=== PATIENT | male | born 1940 | race Caucasian/White ===

== ENCOUNTER 2020-09-07 14:57 | Inpatient (IN) | payer MEDICARE, OTHER ==
[2020-09-07] VITALS (202 sets, daily range): BP systolic 93–106; BP diastolic 40–79; PULSE 30–63; TEMP 97.3–97.5; O2SAT 69–100
[~2020-09-07] VITALS: Ht 175.3 cm; Wt 112.6 kg
[2020-09-07 15:48] LABS: BASO # 0.1 (0.0-0.2); BASO % 0.6 % (0.0-2.0); EOS # 0.4 (0.0-0.7); EOS % 4.7 % (0-4.0); GRAN % 73.1 % (42.2-75.2); LYMPH % 11.8 % (20.0-51.0); MEAN CELL VOLUME 98 fl (80.0-100.0); MEAN CORPUSCULAR HGB CONC 30 g/dl (33.0-37.0); MEAN PLATELET VOLUME 10.5 fl (7.4-10.4); MONO # 0.8 (0.1-0.6); MONO % 9.4 % (1.7-9.3); PLATELET COUNT 178 K/mm3 (130-400); RED BLOOD COUNT 2.18 M/mm3 (4.20-5.60); REDCELL DISTRIBUTION WIDTH-CV 19.4 % (11.5-14.5)
[2020-09-07 15:50] LABS: HEMATOCRIT 21.3 % (42.0-52.0); HEMOGLOBIN 6.3 g/dl (13.5-18.0); MEAN CORPUSCULAR HEMOGLOBIN 29 pg (27.0-31.0)
[2020-09-07 15:54] LABS: INR 1.6 (0.8-3.0); PROTHROMBIN TIME 17.5 SECONDS (9.7-12.8)
[2020-09-07 15:58] LABS: ALBUMIN 3.6 gm/dL (3.5-5.0); BILIRUBIN,TOTAL 0.5 mg/dL (0.0-1.0); CALCIUM 8.7 mg/dL (8.4-10.2); CREATININE, serum 4.31 (0.66-1.25); MAGNESIUM 2.7 mg/dL (1.6-2.3); PHOSPHOROUS 7.1 mg/dL (2.5-4.5); TOTAL PROTEIN 6.6 gm/dL (6.4-8.2)
[2020-09-07 16:10] LABS: POTASSIUM 6.1 mmol/L (3.4-5.0)
[2020-09-07] MEDS ORDERED: TYLENOL 500MG500 MG PO (16:31)
[2020-09-07] MEDS ORDERED: ZYLOPRIM 300MG300 MG PO (16:45)
[2020-09-07] MEDS ORDERED: LIPITOR 10MG10 MG PO (16:47)
[2020-09-07] MEDS ORDERED: CORICCLDFLU PO (16:48)
[2020-09-07] MEDS ORDERED: BANOPHEN25 M1 PO (16:49)
[2020-09-07] MEDS ORDERED: DULCOLAX STOOL100 MG PO (16:49)
[2020-09-07] MEDS ORDERED: LASIX 40MG TABL40 MG PO (16:50)
[2020-09-07] MEDS ORDERED: NEURONTIN100 MG/CAP PO (16:50)
[2020-09-07] MEDS ORDERED: ANUSOL-HC SUPPO25 MG RC ×2 (16:51→16:55)
[2020-09-07] MEDS ORDERED: GLUCOTROL10 MG PO (16:51)
[2020-09-07] MEDS ORDERED: CARAFATE 1GM1 G PO (16:56)
[2020-09-07] MEDS ORDERED: ZAROXOLYN 2.52.5 MG PO (16:56)
[2020-09-07] MEDS ORDERED: FERROUSGLUC256MG (16:56)
[2020-09-07 17:30] LABS: IRON,SERUM 59 ug/dL (35-150)
[2020-09-07 17:40] LABS: TOTAL IRON BINDING CAPACITY 298 ug/dL (261-462)
--- NOTE | 2020-09-07 19:13 | NUR ---
PT to ICU at 1530 from [facility]. PT is pleasant, alert and oriented. PT HR is in the 40s, BP 105/46 and 100% SPO2 on RA. PT complains of leg pain while on EMS cot, but states it is better on ICU bed. Pt is currently resting in bed with deon Sheldon at bedside. Pt has call light in hand. Will report to oncoming RN.
[2020-09-07 19:38] LABS: BASO % 0.4 % (0.0-2.0); EOS # 0.2 (0.0-0.7); GRAN # 6.3 (1.4-6.5); GRAN % 77.8 % (42.2-75.2); LYMPH # 0.9 (1.2-3.4); LYMPH % 11.3 % (20.0-51.0); MEAN CELL VOLUME 96 fl (80.0-100.0); MEAN CORPUSCULAR HGB CONC 31 g/dl (33.0-37.0); MEAN PLATELET VOLUME 10.8 fl (7.4-10.4); MONO # 0.7 (0.1-0.6); MONO % 8.1 % (1.7-9.3); PLATELET COUNT 177 K/mm3 (130-400); RED BLOOD COUNT 2.13 M/mm3 (4.20-5.60); REDCELL DISTRIBUTION WIDTH-CV 19.5 % (11.5-14.5)
[2020-09-07 19:42] LABS: HEMATOCRIT 20.4 % (42.0-52.0); MEAN CORPUSCULAR HEMOGLOBIN 30 pg (27.0-31.0)
[2020-09-07 19:43] LABS: HEMOGLOBIN 6.3 g/dl (13.5-18.0)
[2020-09-08] VITALS (337 sets, daily range): BP systolic 100–135; BP diastolic 39–73; PULSE 30–56; TEMP 97.1–98.1; O2SAT 82–100
[2020-09-08 05:41] LABS: BASO # 0.1 (0.0-0.2); BASO % 0.7 % (0.0-2.0); EOS # 0.3 (0.0-0.7); GRAN # 6.2 (1.4-6.5); GRAN % 76.4 % (42.2-75.2); LYMPH # 0.8 (1.2-3.4); LYMPH % 9.4 % (20.0-51.0); MEAN CELL VOLUME 92 fl (80.0-100.0); MEAN CORPUSCULAR HGB CONC 31 g/dl (33.0-37.0); MEAN PLATELET VOLUME 10.7 fl (7.4-10.4); MONO # 0.7 (0.1-0.6); MONO % 9.1 % (1.7-9.3); PLATELET COUNT 164 K/mm3 (130-400); RED BLOOD COUNT 2.66 M/mm3 (4.20-5.60); REDCELL DISTRIBUTION WIDTH-CV 18.7 % (11.5-14.5)
[2020-09-08 05:43] LABS: HEMATOCRIT 24.5 % (42.0-52.0); HEMOGLOBIN 7.6 g/dl (13.5-18.0); MEAN CORPUSCULAR HEMOGLOBIN 29 pg (27.0-31.0)
[2020-09-08 05:57] LABS: ALBUMIN 3.6 gm/dL (3.5-5.0); CALCIUM 8.6 mg/dL (8.4-10.2)
[2020-09-08 06:01] LABS: POTASSIUM 6.7 mmol/L (3.4-5.0)
--- NOTE | 2020-09-08 06:35 | NUR ---
DR ZARATE CALLED FOR CONSULT TO [facility] FOR DR BETH, SR HUFFMAN STATED HE WOULD BE IN THIS AM
--- NOTE | 2020-09-08 09:28 | NUR ---
YUDITH met with the patient to discuss discharge plan. The patient lives alone in [place]. He states that his niece's daughter, Rashida (ph#[phone]), checks in on him everyday. He reports independence with ADLs and has a cane and walker. He states that he still drives. The patient receives primary care at [facility] in . He states that his provider there was Jessenia Nunez, but that she has left. He is unsure who is provider will be there now. He states his next appointment at [facility] is on 09/12. He receives his medications from [facility] and [facility]. He reports no difficulties obtaining his meds. The patient does not have a DPOA-HC, but he was interested in obtaining a form. YUDITH provided. The patient states that he is not , has no children, and that his parents are . He states that he has two brothers: Misael ([place]) and Jonnie. He does not know where Jonnie lives and has not been in contact with him. The patient reports that he would want Rashida to be his next of kin. YUDITH encouraged the patient to complete the DPOA-HC then. The patient would like to wait until Rashida gets here to fill out the form. The patient would like to return home upon discharge. YUDITH discussed home health services and it's benefits. The patient would like to see how things go, before deciding on home health or not. PT/OT have been ordered. Awaiting screens. YUDITH then contacted the patient's family member, Rashida, to review the above. Rashida confirms she checks in on the patient everyday. She reports that she will be up to the hospital around 1500 today. She had no other questions for YUDITH at this time. YUDITH to continue to follow. *Discharge plan: At this time, home. Awaiting PT/OT recs*
--- NOTE | 2020-09-08 12:42 | NUR ---
1145-Report called to Ani CARDENAS. Notified of bradycardia. All questions answered. 1200-Laura BARNARD RN asked pt to come straight there from unit. 1203-Ani CARDENAS notified of above. Chyna CARDENAS transported pt on tele box to .
[2020-09-08] MEDS ORDERED: PERCOCET 325 MG1 TAB PO (14:39)
--- NOTE | 2020-09-08 17:30 | NUR ---
PT REPORTING DIARRHEA, IMODIUM ORDER PLACED AND IMODIUM GIVEN. PT REPORTS PAIN WITH MOVEMENT BUT NONE AT REST, GOOD OUTPUT WITH SINGH, LITTLE APPETITE, PT HAD ZOFRAN FOR NAUSEA X1 NO VOMITING OCCURED. PT RESTING IN BED AT THIS TIME WITH CALL LIGHT WITHIN REACH, NO OTHER NEEDS.
--- NOTE | 2020-09-08 22:01 | NUR ---
NOTIFIED RONALD RAVI REGARDING 7 BEATS OF VTACH.
[2020-09-08 23:14] LABS: HEPATITIS B SURFACE ANTIBODY <2.0 (()); HEPATITIS B SURFACE ANTIGEN Negative (Negative); HEPATITIS C VIRUS ANTIBODY Negative (Negative)
--- NOTE | 2020-09-08 23:43 | NUR ---
Patient assessed around 1999. Alert and oriented, and able to make needs known. Denies having pain and discomfort. Peripheral INTs to bilateral forearms flushed, and both sites are without redness, warmth, swelling, and pain. Denies having SOB and dyspnea. LS CTA. Respirations even and unlabored. HR-irregular, ana rosa, murmor present. Telemetry in place. Around 2199, telemetry called and stated that patient had a run of Vtach. BP 130/61, HR 40-80, asymptomatic. Call placed to Dr. Herr, and new order for cardiology consult to be called in the morning. Capillary refill less than 3 seconds. Non-tenting skin turgor. BSAx4. Abdomen soft and non-tender. Assisted to bed villela, and patient had BM. Indwelling mathias catheter patent, and drianing clear yellow urine via dependent drainage. Patient has generalized edema all over. 4+ edema BLE, with redness. Voices no questions, needs, or concerns at this time. Resting in bed with call light within reach. High fall risk precautions in place.
[2020-09-09] VITALS (13 sets, daily range): BP systolic 91–163; BP diastolic 33–71; PULSE 40–71; TEMP 98.1–99
--- NOTE | 2020-09-09 05:34 | NUR ---
Patient has denied having pain and discomfort this shift. HR continues to be in the 30s-50s, irregular. Voices no questions, needs, or concerns at this time. Resting in bed with call light within reach.
[2020-09-09 07:03] LABS: BASO % 0.2 % (0.0-2.0); EOS # 0.2 (0.0-0.7); GRAN # 6.1 (1.4-6.5); GRAN % 75.8 % (42.2-75.2); LYMPH # 0.7 (1.2-3.4); LYMPH % 8.3 % (20.0-51.0); MEAN CELL VOLUME 94 fl (80.0-100.0); MEAN CORPUSCULAR HGB CONC 31 g/dl (33.0-37.0); MEAN PLATELET VOLUME 11.4 fl (7.4-10.4); MONO % 12.2 % (1.7-9.3); PLATELET COUNT 148 K/mm3 (130-400); RED BLOOD COUNT 2.62 M/mm3 (4.20-5.60); REDCELL DISTRIBUTION WIDTH-CV 19.7 % (11.5-14.5)
[2020-09-09 07:04] LABS: ALBUMIN 3.4 gm/dL (3.5-5.0); CALCIUM 8.3 mg/dL (8.4-10.2); CREATININE, serum 3.07 (0.66-1.25); PHOSPHOROUS 5.6 mg/dL (2.5-4.5); POTASSIUM 4.5 mmol/L (3.4-5.0)
[2020-09-09 07:05] LABS: HEMATOCRIT 24.6 % (42.0-52.0); HEMOGLOBIN 7.7 g/dl (13.5-18.0); MEAN CORPUSCULAR HEMOGLOBIN 29 pg (27.0-31.0)
--- NOTE | 2020-09-09 08:30 | NUR ---
Shift assessment complete. A&Ox4. Heart rhythm irregular, rate 30s-40s. Denies SOA/dizziness/chest pain. 4+ edema and redness to BLE, reports tenderness to touch bilaterally. Lungs CTA. Denies needs.
--- NOTE | 2020-09-09 08:35 | NUR ---
Pt transported down to dialysis at this time.
--- NOTE | 2020-09-09 11:42 | NUR ---
Patient tolerated 2nd HD tx with 2.5L fluid removal. HR remained in the mid 50's. Next HD tx on standby pending tomorrow's labs.
--- NOTE | 2020-09-09 12:00 | NUR ---
Pt taken down for EGD at this time.
--- NOTE | 2020-09-09 13:41 | NUR ---
Pt back in room following EGD. Post op vitals started.
--- NOTE | 2020-09-09 16:47 | NUR ---
Braider Tender met with patient as he wanted to complete DPOA-HC paperwork. Patient chose to designate his niece, Nadia and great-niece, Monalisa. YUDITH and YUDITH Claros provided witness signature. YUDITH provided original and copies to patient then placed copy on patient's chart. YUDITH also spoke with patient about Home Health services and provided Medicare.gov list of HH agencies. Patient would like time to review the options. Discharge Plan: Home with Home Health
--- NOTE | 2020-09-09 20:30 | NUR ---
Initial shift assessment done- has been resting quietly-hoping to get some sleep,,no requests at this time, Lechuga with clear yellow urine , refusing SCD,s due to lymphedema and cant have anything touching his legs-painful to touch and move legs, on clear liquid diet. Right IJ dialysis cathter to right jugular,, tele on-afib,bradycardic 40,s
[2020-09-10 00:17] VITALS: BP 123/42; PULSE 50; TEMP 97.5
[2020-09-10 04:27] VITALS: BP 133/52; PULSE 65; TEMP 98.6
--- NOTE | 2020-09-10 05:40 | NUR ---
Quiet night-- slept well, no requests, no stools during the night. Tele was Afib, rate 40-60/min, Lechuga with good output. states he is feeling so much better.
[2020-09-10 06:35] LABS: BASO % 0.4 % (0.0-2.0); EOS # 0.3 (0.0-0.7); EOS % 3.9 % (0-4.0); GRAN # 6.2 (1.4-6.5); GRAN % 74.6 % (42.2-75.2); LYMPH # 0.7 (1.2-3.4); LYMPH % 8.7 % (20.0-51.0); MEAN CELL VOLUME 94 fl (80.0-100.0); MEAN CORPUSCULAR HGB CONC 31 g/dl (33.0-37.0); MEAN PLATELET VOLUME 11.7 fl (7.4-10.4); MONO % 11.7 % (1.7-9.3); PLATELET COUNT 149 K/mm3 (130-400); RED BLOOD COUNT 2.67 M/mm3 (4.20-5.60); REDCELL DISTRIBUTION WIDTH-CV 18.9 % (11.5-14.5)
[2020-09-10 06:39] LABS: HEMOGLOBIN 7.7 g/dl (13.5-18.0); MEAN CORPUSCULAR HEMOGLOBIN 29 pg (27.0-31.0)
[2020-09-10 06:44] LABS: ALBUMIN 3.4 gm/dL (3.5-5.0); CALCIUM 8.4 mg/dL (8.4-10.2); CREATININE, serum 2.18 (0.66-1.25); PHOSPHOROUS 3.7 mg/dL (2.5-4.5); POTASSIUM 3.5 mmol/L (3.4-5.0)
[2020-09-10 07:45] VITALS: BP 148/50; PULSE 68
--- NOTE | 2020-09-10 08:30 | NUR ---
Shift assessment complete. Pt lying in bed, emotional this morning. Began tearing up stating how thankful he was for the great care at such a difficult time for him. Offered pt to speak w/bread wrapper operator during stay, he declined. A&Ox4. Heart rhythm remains irregular w/rate between 30-50s. Denies chest pain/dizziness/SOA. Heart RRR. BLE remain swollen w/4+ edema and tender to touch, RLE reddened over weeks and foot. Denies needs. Call light in reach.
[2020-09-10 12:50] VITALS: BP 128/54; PULSE 43; TEMP 98.5
[2020-09-10 17:11] VITALS: BP 114/89; PULSE 50; TEMP 98.5
--- NOTE | 2020-09-10 20:00 | NUR ---
Initial shift assessment done- states feeling better,, Tele on, Afib,rate 40-60,s,,,Dialysis cathter intact to right jugular- dressing dry and intact, Has INT to left external jugular- intact. Pt just resting, no complaints at this time. Lechuga with good amounts clear yellow urine.
--- NOTE | 2020-09-10 20:35 | NUR ---
Tele nurse called states patient had 6 sec run of PVC,s-- requested a EKG-- respiratory called--will come up to do 12 lead EKG. patient resting- states feels fine VSS, 145/48,65, 94%on RA-
[2020-09-10 20:55] VITALS: BP 145/48; PULSE 65; TEMP 98.9
--- NOTE | 2020-09-10 21:00 | NUR ---
EKG done-- Dr Herr notified of 6 sec run of PVCS and EKG with afib/pvc,s--rate controlled at 68/min, pt is asymptomatic, VSS - will continue to observe on Tele tonight as long as pt is asymptomatic- no new orders.
[2020-09-11 01:33] VITALS: BP 157/53; PULSE 49; TEMP 98.4
[2020-09-11 04:22] VITALS: BP 148/46; PULSE 45; TEMP 98
--- NOTE | 2020-09-11 05:15 | NUR ---
Quiet night-- couldnt get comfortable- right leg sore, Tylenol given around 0200-- has been resting quietly since , VS, Has had 1650 output from [employer] for past 12 hrs.
[2020-09-11 07:18] VITALS: BP 144/69; PULSE 59; TEMP 98.7
[2020-09-11 07:39] LABS: BASO % 0.3 % (0.0-2.0); EOS # 0.5 (0.0-0.7); EOS % 5.2 % (0-4.0); GRAN # 6.4 (1.4-6.5); GRAN % 71.5 % (42.2-75.2); LYMPH # 0.9 (1.2-3.4); LYMPH % 10.6 % (20.0-51.0); MEAN CELL VOLUME 94 fl (80.0-100.0); MEAN CORPUSCULAR HGB CONC 31 g/dl (33.0-37.0); MEAN PLATELET VOLUME 11.7 fl (7.4-10.4); MONO # 1.1 (0.1-0.6); MONO % 11.8 % (1.7-9.3); PLATELET COUNT 151 K/mm3 (130-400); RED BLOOD COUNT 2.72 M/mm3 (4.20-5.60); REDCELL DISTRIBUTION WIDTH-CV 18.5 % (11.5-14.5)
[2020-09-11 07:44] LABS: HEMATOCRIT 25.5 % (42.0-52.0); MEAN CORPUSCULAR HEMOGLOBIN 29 pg (27.0-31.0)
[2020-09-11 07:56] LABS: ALBUMIN 3.3 gm/dL (3.5-5.0); CALCIUM 8.3 mg/dL (8.4-10.2); CREATININE, serum 2.25 (0.66-1.25); PHOSPHOROUS 3.4 mg/dL (2.5-4.5)
[2020-09-11 07:59] LABS: POTASSIUM 2.9 mmol/L (3.4-5.0)
--- NOTE | 2020-09-11 09:24 | NUR ---
Assessment completed, alert/oriented, vital signs stable, denies any acute pain or discomfort/ has chronic mild-mod pain to his legs that is unchanged and we are using Tylenol to treat, heart irregular/ A.fib bradycardic on tele, denies feeling dizzy/lightheaded, lungs CTA/ denies feeling SOA, reports overall feeling better, creat 2.2 and about the same as yesterday, K+ 2.9 and I will let know, having good urine output / mathias cath still in place, patient is up to the chair and walked with PT he did quite well on his feet, he is eating and drinking without any N/V, denies other needs at this time, call light in reach, chair alarm is on
[2020-09-11 12:18] VITALS: BP 154/40; PULSE 64; TEMP 98.4
[2020-09-11 16:26] VITALS: BP 168/72; PULSE 55; TEMP 97.9
[2020-09-11 20:20] VITALS: BP 154/62; PULSE 56; TEMP 98.1
[2020-09-12 00:18] VITALS: BP 148/45; PULSE 72; TEMP 98.3
[2020-09-12 04:56] VITALS: BP 150/56; PULSE 56; TEMP 97.7
[2020-09-12 05:13] LABS: BASO % 0.2 % (0.0-2.0); EOS # 0.6 (0.0-0.7); EOS % 6.8 % (0-4.0); GRAN # 6.3 (1.4-6.5); GRAN % 69.2 % (42.2-75.2); LYMPH % 11.4 % (20.0-51.0); MEAN CELL VOLUME 92 fl (80.0-100.0); MEAN CORPUSCULAR HGB CONC 31 g/dl (33.0-37.0); MONO # 1.1 (0.1-0.6); PLATELET COUNT 166 K/mm3 (130-400); RED BLOOD COUNT 2.79 M/mm3 (4.20-5.60); REDCELL DISTRIBUTION WIDTH-CV 18.1 % (11.5-14.5)
[2020-09-12 05:22] LABS: HEMATOCRIT 25.6 % (42.0-52.0); MEAN CORPUSCULAR HEMOGLOBIN 29 pg (27.0-31.0)
[2020-09-12 05:25] LABS: ALBUMIN 3.2 gm/dL (3.5-5.0); CALCIUM 8.3 mg/dL (8.4-10.2); CREATININE, serum 2.02 (0.66-1.25); PHOSPHOROUS 2.8 mg/dL (2.5-4.5)
[2020-09-12 05:27] LABS: POTASSIUM 2.9 mmol/L (3.4-5.0)
--- NOTE | 2020-09-12 07:00 | NUR ---
Report received from aviva junior. PT resting in bed, denies needs, will continue to monitor.
[2020-09-12 07:39] VITALS: BP 158/65; PULSE 69; TEMP 98.3
--- NOTE | 2020-09-12 10:40 | NUR ---
Report from RONALD Prieto. Pt sitting up in chair with eyes closed, resp even and unlabored.
[2020-09-12] MEDS ORDERED: PROTONIX 40MG T40 MG PO (10:55)
[2020-09-12] MEDS ORDERED: BUMEX 1MG TA1 MG/TA1 PO (11:00)
--- NOTE | 2020-09-12 11:05 | NUR ---
Assessment charted. pT resting in chair at side of bed, anticipating possible dishcarge. RIJ HD cath. LEJ INT. BLE lymphedema 3+ and 2+ to feet, RLE is more red than others. PT denies pain. Report given to RONALD Alvarado who will resume care.
[2020-09-12 11:24] VITALS: BP 142/68; PULSE 60; TEMP 98.3
--- NOTE | 2020-09-12 12:06 | NUR ---
HD catheter removed from right IJ by Airborne Sensor Specialist, RONALD Kaur.
[2020-09-12] MEDS ORDERED: KLOR-CON SPRIN10 MEQ PO ×2 (12:23)
--- NOTE | 2020-09-12 14:08 | NUR ---
Lechuga catheter and telemetry discontinued from pt. Pt cleaning up per request then will be ready for discharge.
--- NOTE | 2020-09-12 14:40 | NUR ---
IV discontinued from left EJ with tip intact. Discharge instructions reviewed with pt regarding new medications and follow-up appointments and home health orders. Pt verbalizes understanding, questions invited and answered. Pt discharged home with home health services, escorted out of facility via WC accompanied by LATENT PRINT EXAMINER and pt's friend.
--- NOTE | 2020-09-12 16:45 | NUR ---
The patient discharged home today, 09/12 with [facility]. PT/OT/Penitentiary services. SW faxed discharge orders. There are no additional needs.
[2020-10-18] MEDS ORDERED: LASIX 40MG TABL40 MG PO (11:44)
== END 2020-09-12 15:00 | disposition home health service (06) | DRG 378 ==
LOC: MEDICAL 14:57 → ICU 15:20 → MEDICAL 09-08 13:46
PROVIDERS: ADMIT Internal Medicine Nephrology
PROC: 0DB68ZX Excision of Stomach, Via Natural or Artificial Opening Endoscopic, Diagnostic (ICD-10-PCS; 2020-09-07)
PROC: 0JH63XZ Insertion of Tunneled Vascular Access Device into Chest Subcutaneous Tissue and Fascia, Percutaneous Approach (ICD-10-PCS; principal; 2020-09-08)
PROC: 05HM33Z Insertion of Infusion Device into Right Internal Jugular Vein, Percutaneous Approach (ICD-10-PCS; 2020-09-08)
DX: K29.41 Chronic atrophic gastritis with bleeding (principal); R57.9 Shock, unspecified; N17.9 Acute kidney failure, unspecified; Z68.41 Body mass index [BMI] 40.0-44.9, adult; E11.22 Type 2 diabetes mellitus with diabetic chronic kidney disease; N18.32 Chronic kidney disease, stage 3b; E66.01 Morbid (severe) obesity due to excess calories; E87.6 Hypokalemia; R00.1 Bradycardia, unspecified; E87.5 Hyperkalemia; N40.0 Benign prostatic hyperplasia without lower urinary tract symptoms; M10.9 Gout, unspecified; M19.90 Unspecified osteoarthritis, unspecified site; I12.9 Hypertensive chronic kidney disease with stage 1 through stage 4 chronic kidney disease, or unspecified chronic kidney disease; D50.9 Iron deficiency anemia, unspecified; K21.9 Gastro-esophageal reflux disease without esophagitis; K31.89 Other diseases of stomach and duodenum; K44.9 Diaphragmatic hernia without obstruction or gangrene
CPT/HCPCS: A4314; C9113; J0610; J1644; J1756; J1815; J1940; J2405; J2704; J7030; J7050; P9016; Q5106

== ENCOUNTER 2020-09-20 17:32 | Observation (INO) | payer MEDICARE, OTHER ==
[~2020-09-20] VITALS: Ht 175.3 cm; Wt 121.4 kg
[~2020-09-20 17:32] MED LIST: ANUSOL-HC SUPPO25 MG RC; BANOPHEN25 M1 PO; BUMEX 1MG TA1 MG/TA1 PO; CARAFATE 1GM1 G PO; CORICCLDFLU PO; DULCOLAX STOOL100 MG PO; FERROUSGLUC256MG; GLUCOTROL10 MG PO; KLOR-CON SPRIN10 MEQ PO; LASIX 40MG TABL40 MG PO; LIPITOR 10MG10 MG PO; NEURONTIN100 MG/CAP PO; PERCOCET 325 MG1 TAB PO; PROTONIX 40MG T40 MG PO; TYLENOL 500MG500 MG PO; ZAROXOLYN 2.52.5 MG PO; ZYLOPRIM 300MG300 MG PO
[2020-09-20 18:35] LABS: BASO # 0.1 (0.0-0.2); EOS # 0.5 (0.0-0.7); EOS % 4.1 % (0-4.0); GRAN # 8.5 (1.4-6.5); GRAN % 72.5 % (42.2-75.2); LYMPH # 1.4 (1.2-3.4); LYMPH % 11.6 % (20.0-51.0); MEAN CELL VOLUME 93 fl (80.0-100.0); MEAN CORPUSCULAR HGB CONC 31 g/dl (33.0-37.0); MEAN PLATELET VOLUME 10.6 fl (7.4-10.4); MONO # 1.2 (0.1-0.6); PLATELET COUNT 273 K/mm3 (130-400); RED BLOOD COUNT 3.31 M/mm3 (4.20-5.60); REDCELL DISTRIBUTION WIDTH-CV 17.1 % (11.5-14.5)
[2020-09-20 18:36] LABS: HEMATOCRIT 30.7 % (42.0-52.0); HEMOGLOBIN 9.4 g/dl (13.5-18.0); MEAN CORPUSCULAR HEMOGLOBIN 28 pg (27.0-31.0)
[2020-09-20 18:45] LABS: BILIRUBIN,TOTAL 0.4 mg/dL (0.0-1.0); CALCIUM 7.7 mg/dL (8.4-10.2); CREATININE, serum 3.93 (0.66-1.25); POTASSIUM 5.2 mmol/L (3.4-5.0); TOTAL PROTEIN 7.1 gm/dL (6.4-8.2)
[2020-09-20 19:00] LABS: COLLECTION METHOD CLEAN CATCH
[2020-09-20 19:17] LABS: MUCOUS Present /lpf; PH 5 (5-8); SQUAMOUS EPITHELIAL None Seen /hpf; URINE APPEARANCE Clear; URINE BACTERIA None Seen /hpf; URINE BILIRUBIN Negative (NEGATIVE); URINE BLOOD Negative (NEGATIVE); URINE COLOR Yellow; URINE GLUCOSE Negative (NEGATIVE); URINE KETONE Negative (NEGATIVE); URINE LEUKOCYTE ESTERASE 1+ (NEGATIVE); URINE NITRATE Negative (NEGATIVE); URINE PROTEIN(semi-quant) Negative (NEGATIVE); URINE RBC 0-2 /hpf; URINE UROBILINOGEN Negative (NEGATIVE)
--- NOTE | 2020-09-20 21:20 | NUR ---
Received patient from ED. He is alert and oriented. He is on room air. With INT on right AC. Medrec has been reviewed. BLE has +3 edema. Lymphedema noted right leg worse than left. He states he feels pain whenever he would walk, but denies pain right now as he was lying in bed.
[2020-09-20 21:21] VITALS: BP 130/63; PULSE 79; TEMP 97.5
[2020-09-20 21:23] LABS: INR 1.6 (0.8-3.0); PROTHROMBIN TIME 17.4 SECONDS (9.7-12.8)
--- NOTE | 2020-09-20 22:05 | NUR ---
Called Dr. Herr that patient's already at room and medrec is done. Informed patient regarding his diet and fluid restriction. He verbalizes understanding.
[2020-09-20 23:43] VITALS: BP 110/44; PULSE 109; TEMP 98.6
[2020-09-21 04:07] VITALS: BP 108/44; PULSE 51; TEMP 97.4
--- NOTE | 2020-09-21 06:23 | NUR ---
Patient had uneventful night. He do have adequate amount of urine output. Maintained on fluid restriction.
--- NOTE | 2020-09-21 07:00 | NUR ---
Report received from RONALD Zarco. pT in bed resting with eyes close,d will continue to [facility].
[2020-09-21 07:06] LABS: BASO # 0.1 (0.0-0.2); BASO % 0.8 % (0.0-2.0); EOS # 0.6 (0.0-0.7); EOS % 5.9 % (0-4.0); GRAN # 6.9 (1.4-6.5); GRAN % 69.1 % (42.2-75.2); LYMPH # 1.5 (1.2-3.4); LYMPH % 14.7 % (20.0-51.0); MEAN CELL VOLUME 94 fl (80.0-100.0); MEAN CORPUSCULAR HGB CONC 31 g/dl (33.0-37.0); MEAN PLATELET VOLUME 11.2 fl (7.4-10.4); MONO # 0.9 (0.1-0.6); MONO % 8.8 % (1.7-9.3); PLATELET COUNT 255 K/mm3 (130-400); RED BLOOD COUNT 3.12 M/mm3 (4.20-5.60); REDCELL DISTRIBUTION WIDTH-CV 17.2 % (11.5-14.5)
[2020-09-21 07:12] LABS: ALBUMIN 3.5 gm/dL (3.5-5.0); CALCIUM 7.7 mg/dL (8.4-10.2); CREATININE, serum 3.56 (0.66-1.25); PHOSPHOROUS 6.9 mg/dL (2.5-4.5); POTASSIUM 4.6 mmol/L (3.4-5.0)
[2020-09-21 07:13] LABS: HEMATOCRIT 29.3 % (42.0-52.0); MEAN CORPUSCULAR HEMOGLOBIN 29 pg (27.0-31.0)
[2020-09-21 08:12] VITALS: BP 109/54; PULSE 51; TEMP 97.4
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
[2020-09-21 11:42] VITALS: BP 107/62; PULSE 59; TEMP 98.3
--- NOTE | 2020-09-21 13:32 | NUR ---
Dialysis Technician met with patient to discuss discharge planning. Patient lives alone in [place] and goes to the [facility] in for primary care. Patient obtains medications from [facility] in with no difficulties. Patient has a walker and cane at home. Patient reports he is slow, but independent with ADLS and has [facility]. Patient advised that services from [place] have been going well and wants to continue with them. Patient has Advance Directives in EMR which designate Monalisa Perez and Tata Reyna as DPOA-HC. Patient advised he plans to return home upon discharge with continued [facility]. SW contacted patient's niece/DPOA-HC, Monalisa to review discharge plan. Monalisa is in agreement with plan for home with . YUDITH contacted Praveena at [facility] and left a message, then faxed clinical updates. Discharge Plan: Home with [facility].
[2020-09-21 15:54] VITALS: BP 116/48; PULSE 57; TEMP 97.9
--- NOTE | 2020-09-21 18:24 | NUR ---
Pt blood sugar low on initial check, able to stay awake and asymptomatic, encourage intake of pie, crackres with peanut butter, OJ with sugar. WBG went from 40 to 50. Called for orders, received and input. Will administer per protocol and continue to monitor. Will give bedside report to nightshift nruse who will reusme care.
--- NOTE | 2020-09-21 19:00 | NUR ---
Received report from Ida. Patient awake in bed. Denies needs at this time.
[2020-09-21 19:21] VITALS: BP 122/57; PULSE 97; TEMP 97.4
--- NOTE | 2020-09-21 21:31 | NUR ---
Assesment done. Patient with IV on right AC infusing Bumex drip at 5ml/hr. He has urinal at the bedside. On left arm restrict. SCD on both legs. He denies pain.
[2020-09-22] VITALS (8 sets, daily range): BP systolic 94–135; BP diastolic 45–92; PULSE 56–96; TEMP 97.3–98.5
--- NOTE | 2020-09-22 06:10 | NUR ---
Patient states he feels that his legs are getting softer. He has a good amount of urine output. He denies pain.
[2020-09-22 07:01] LABS: BASO # 0.1 (0.0-0.2); BASO % 0.8 % (0.0-2.0); EOS # 0.5 (0.0-0.7); EOS % 4.2 % (0-4.0); GRAN # 8.3 (1.4-6.5); GRAN % 74.3 % (42.2-75.2); LYMPH # 1.4 (1.2-3.4); LYMPH % 12.3 % (20.0-51.0); MEAN CELL VOLUME 92 fl (80.0-100.0); MEAN CORPUSCULAR HGB CONC 32 g/dl (33.0-37.0); MEAN PLATELET VOLUME 11.1 fl (7.4-10.4); MONO # 0.9 (0.1-0.6); MONO % 7.6 % (1.7-9.3); PLATELET COUNT 278 K/mm3 (130-400); RED BLOOD COUNT 3.15 M/mm3 (4.20-5.60); REDCELL DISTRIBUTION WIDTH-CV 17.2 % (11.5-14.5)
[2020-09-22 07:04] LABS: HEMATOCRIT 28.9 % (42.0-52.0); HEMOGLOBIN 9.1 g/dl (13.5-18.0); MEAN CORPUSCULAR HEMOGLOBIN 29 pg (27.0-31.0)
[2020-09-22 07:17] LABS: ALBUMIN 3.5 gm/dL (3.5-5.0); CALCIUM 8.2 mg/dL (8.4-10.2); CREATININE, serum 3.09 (0.66-1.25); PHOSPHOROUS 6.1 mg/dL (2.5-4.5); POTASSIUM 4.8 mmol/L (3.4-5.0)
--- NOTE | 2020-09-22 07:22 | NUR ---
Patient resting in bed at this time. No signs of pain, discomfort, or futher needs at this time. Bumex drip running as ordered. Will continue to monitor. Call light in reach. Fall precautions in reach.
--- NOTE | 2020-09-22 09:20 | NUR ---
Initial visit; Patient thanked Materials Director for stopping and states he is doing well and hopes to go home soon. Materials Director offered God's blessings and wished Robert well.
--- NOTE | 2020-09-22 15:25 | NUR ---
Behavioral Health Counselor staffed with Dr. Herr regarding discharge. The patient is not ready for discharge this day. *Discharge disposition: Home with home health
--- NOTE | 2020-09-22 18:36 | NUR ---
Patient has had an uneventful day. Bumex drip is still running as ordered. Dialysis catheter not placed per Bedros. Patient is currently resting in bed. VSS. Patient denies any pain, discomfort, or further needs at this time. Will continue to monitor. Call light in reach. Fall precautions in place.
--- NOTE | 2020-09-22 20:00 | NUR ---
Assessment complete. Patient is alert and oriented and pleasant; He complains of right leg pain and PRN Tylenol is adminstered. Heart rate is normal with murmur and lungs are clear. BS audible in all quadrants. BLE edematous with 1+ pitting; RLE is red and warm with old skin graft sites. No new concerns at this time, will continue to monitor.
[2020-09-23 04:09] VITALS: BP 113/60; PULSE 61; TEMP 98.4
[2020-09-23 06:26] LABS: BASO # 0.1 (0.0-0.2); BASO % 0.8 % (0.0-2.0); EOS # 0.4 (0.0-0.7); EOS % 4.4 % (0-4.0); GRAN # 6.6 (1.4-6.5); GRAN % 67.2 % (42.2-75.2); LYMPH # 1.8 (1.2-3.4); LYMPH % 17.9 % (20.0-51.0); MEAN CELL VOLUME 92 fl (80.0-100.0); MEAN CORPUSCULAR HGB CONC 31 g/dl (33.0-37.0); MEAN PLATELET VOLUME 11.1 fl (7.4-10.4); MONO # 0.9 (0.1-0.6); MONO % 9.1 % (1.7-9.3); PLATELET COUNT 295 K/mm3 (130-400); RED BLOOD COUNT 3.27 M/mm3 (4.20-5.60); REDCELL DISTRIBUTION WIDTH-CV 17.2 % (11.5-14.5)
[2020-09-23 06:31] LABS: HEMOGLOBIN 9.2 g/dl (13.5-18.0); MEAN CORPUSCULAR HEMOGLOBIN 28 pg (27.0-31.0)
[2020-09-23 06:40] LABS: ALBUMIN 3.5 gm/dL (3.5-5.0); CALCIUM 8.5 mg/dL (8.4-10.2); CREATININE, serum 3.05 (0.66-1.25); PHOSPHOROUS 5.6 mg/dL (2.5-4.5); POTASSIUM 4.8 mmol/L (3.4-5.0)
--- NOTE | 2020-09-23 06:53 | NUR ---
Patient asleep in bed at this time. No signs of pain, discomfort, or needs. Will conitnue to monitor. Bumex drip running as ordered. Call light in reach. Fall precautions in place. SCDS in use.
[2020-09-23 07:42] VITALS: BP 109/67; PULSE 82; TEMP 97.7
--- NOTE | 2020-09-23 10:51 | NUR ---
Scheduled medications given. Assessments performed. Patient C/O pain in his right late. Rates it an 8/10 aching pain, that increases with movement. PRN percocet given. Patient denies any further pain, discomfort, or needs at this time. Heel protectors on, SCDS in use. Will continue to monitor. Call light in reach. Fall precautions in place.
[2020-09-23 11:17] VITALS: BP 107/53; PULSE 84; TEMP 98.1
[2020-09-23] MEDS ORDERED: PHOSLO667 MG PO (13:20)
[2020-09-23] MEDS ORDERED: GLUCOTROL10 MG PO (13:22)
[2020-09-23] MEDS ORDERED: LASIX 40MG TABL40 MG PO (13:26)
[2020-09-23] MEDS ORDERED: KLOR-CON SPRIN10 MEQ PO (13:27)
--- NOTE | 2020-09-23 15:07 | NUR ---
IV DC'd catheter intact, no sign of phlebitis. Discharge education/instructions given. Patient verbalized an understanding and denied any further questions or concerns. VSS. Patient escorted from building by [facility] staff via wheelchair.
--- NOTE | 2020-09-23 16:54 | NUR ---
The patient discharged home today, 09/23 with [facility]. PT/OT/Nursing. Discharge orders faxed and Praveena from [facility] contacted regarding discharge. There are no additional needs.
[2020-10-18] MEDS ORDERED: LASIX 40MG TABL40 MG PO (11:44)
== END 2020-09-23 15:09 | disposition home or self-care (01) ==
LOC: COL.ER 17:32 → MEDICAL 19:22
PROVIDERS: Physician Assistant; ADMIT Internal Medicine Nephrology
DX: N17.9 Acute kidney failure, unspecified (principal); E87.70 Fluid overload, unspecified; N18.4 Chronic kidney disease, stage 4 (severe); E83.39 Other disorders of phosphorus metabolism; M10.9 Gout, unspecified; I12.9 Hypertensive chronic kidney disease with stage 1 through stage 4 chronic kidney disease, or unspecified chronic kidney disease; N12 Tubulo-interstitial nephritis, not specified as acute or chronic; E11.22 Type 2 diabetes mellitus with diabetic chronic kidney disease; Q60.0 Renal agenesis, unilateral; E78.5 Hyperlipidemia, unspecified; M19.90 Unspecified osteoarthritis, unspecified site; G89.29 Other chronic pain; G47.00 Insomnia, unspecified; E87.5 Hyperkalemia; E11.9 Type 2 diabetes mellitus without complications; F41.9 Anxiety disorder, unspecified; Z79.84 Long term (current) use of oral hypoglycemic drugs; Z79.899 Other long term (current) drug therapy; Z79.891 Long term (current) use of opiate analgesic
CPT/HCPCS: G0378

== ENCOUNTER 2020-09-29 17:44 | Inpatient (IN) | payer MEDICARE, OTHER ==
[~2020-09-29] VITALS: Ht 175.3 cm; Wt 107.0 kg
[~2020-09-29 17:44] MED LIST changes: +PHOSLO667 MG PO
[2020-09-29 19:05] LABS: BASO # 0.1 (0.0-0.2); EOS # 0.2 (0.0-0.7); EOS % 1.9 % (0-4.0); GRAN # 7.5 (1.4-6.5); GRAN % 72.9 % (42.2-75.2); LYMPH # 1.5 (1.2-3.4); LYMPH % 14.4 % (20.0-51.0); MEAN CELL VOLUME 90 fl (80.0-100.0); MEAN CORPUSCULAR HGB CONC 31 g/dl (33.0-37.0); MEAN PLATELET VOLUME 11.2 fl (7.4-10.4); MONO # 0.9 (0.1-0.6); MONO % 9.1 % (1.7-9.3); PLATELET COUNT 304 K/mm3 (130-400); RED BLOOD COUNT 3.46 M/mm3 (4.20-5.60); REDCELL DISTRIBUTION WIDTH-CV 17.5 % (11.5-14.5)
[2020-09-29 19:06] LABS: HEMATOCRIT 31.2 % (42.0-52.0); HEMOGLOBIN 9.7 g/dl (13.5-18.0); MEAN CORPUSCULAR HEMOGLOBIN 28 pg (27.0-31.0)
[2020-09-29 19:16] LABS: ALBUMIN 4.2 gm/dL (3.5-5.0); BILIRUBIN,TOTAL 0.6 mg/dL (0.0-1.0); CALCIUM 8.7 mg/dL (8.4-10.2); CREATININE, serum 6.82 (0.66-1.25); TOTAL PROTEIN 7.5 gm/dL (6.4-8.2)
[2020-09-29 19:28] LABS: POTASSIUM 6.6 mmol/L (3.4-5.0)
[2020-09-29 20:32] LABS: COLLECTION METHOD CLEAN CATCH
[2020-09-29 20:43] LABS: PH 8 (5-8); SQUAMOUS EPITHELIAL None Seen /hpf; URINE APPEARANCE Hazy; URINE BACTERIA None Seen /hpf; URINE BILIRUBIN Negative (NEGATIVE); URINE BLOOD Negative (NEGATIVE); URINE COLOR Yellow; URINE GLUCOSE Negative (NEGATIVE); URINE KETONE Negative (NEGATIVE); URINE LEUKOCYTE ESTERASE 3+ (NEGATIVE); URINE NITRATE Negative (NEGATIVE); URINE PROTEIN(semi-quant) Negative (NEGATIVE); URINE RBC 0-2 /hpf; URINE UROBILINOGEN Negative (NEGATIVE)
[2020-09-29] MEDS ORDERED: GLUCOTROL 5M5 MG/TAB PO (22:01)
[2020-09-29 22:38] VITALS: BP 135/44; PULSE 56
[2020-09-30] VITALS (7 sets, daily range): BP systolic 105–127; BP diastolic 40–75; PULSE 43–73; TEMP 97.3–98.3
--- NOTE | 2020-09-30 02:55 | NUR ---
Pt not able to get much sleep. States he only sleeps a short amount of time and then wakes up. He is emotional at this time due to him getting sick quicker and having to be hospitalized more often. He says that he knows he needs to do dialysis. Gave him some ice water and encouraged him to drink on it slowly. Call light within reach
--- NOTE | 2020-09-30 06:03 | NUR ---
Pt resting at this time
--- NOTE | 2020-09-30 07:54 | NUR ---
Pt assessment complete. Pt is sleeping in bed upon entry, arouses to voice. He is denies SOB at this time. Reports mild pain to R knee this is a chronic thing. BLE elevated on pillows. Has no needs at this time. Call light within reach.
--- NOTE | 2020-09-30 09:04 | NUR ---
Pt sleeping at this time. Had refused breakfast earlier, will reevaluate with patient when awake.
--- NOTE | 2020-09-30 10:48 | NUR ---
Initial visit; Patient recalls prior visits from Pecan Cleaner. He spoke of his continual health issues and thanked Pecan Cleaner for looking in on him and keeping him in her prayers.
[2020-09-30 10:55] LABS: ALBUMIN 3.7 gm/dL (3.5-5.0); CALCIUM 8.5 mg/dL (8.4-10.2); CREATININE, serum 5.93 (0.66-1.25); POTASSIUM 5.1 mmol/L (3.4-5.0)
--- NOTE | 2020-09-30 16:52 | NUR ---
Machine Printer Hose met with patient and patient's niece/DPOA-Davmary ellen to discuss discharge planning. Patient is a readmit and his recent stays were 09/12 and 09/23. Patient was discharged home with [facility]. Before the intake, YUDITH had contacted Praveena at [facility] and faxed clinical updates. Praveena advised they had not been able to do anything more than an initial visit as patient had not followed through with his appointments at [facility] so they could get further orders. Patient did see his PCP, Dr Inman at [facility] yesterday so now [facility] will have further orders and can make more visits. Patient lives alone in [place] and goes to [facility] in for primary care. Patient obtains medications from [facility] and advised he has been taking his medications as prescribed. Patient reports he's been following his diet and not cooking with salt. Patient has a cane and walker that he uses at home. Patient reports at this time he plans to return home with [facility]. PT/OT have been ordered. YUDITH collaborated with Dr. Herr who advised he will be initiating dialysis for patient here and will work on setting him up at his clinic for outpatient. YUDITH will continue to follow. Discharge Plan: Home with [facility]
--- NOTE | 2020-09-30 18:19 | NUR ---
Pt up to the chair this afternoon and for dinner, slept most of the day. Pain to lower extremities with any touch. Elevated on pillows. Eating dinner at this time, POC discussed with patient who verbalizes understanding. Will be NPO at [facility]. No needs at this time.
--- NOTE | 2020-09-30 21:30 | NUR ---
Pt resing in bed upon entering. Pt reports that he had an overall good day. He talked about having the dialysis catheter placed tomorrow. Pt got teary eyed and just said that it is a lot to take in. He knows he needs to go through with it, just doesn't know how he will manage. Educated pt regarding resources and to ask questions any time he has any. PRN Tylenol given for right knee pain
[2020-10-01] VITALS (11 sets, daily range): BP systolic 99–124; BP diastolic 40–69; PULSE 51–70; TEMP 65.2–98.2
--- NOTE | 2020-10-01 05:46 | NUR ---
Pt slept through the night with no needs verbalized
[2020-10-01 06:41] LABS: BASO # 0.1 (0.0-0.2); BASO % 0.6 % (0.0-2.0); EOS # 0.3 (0.0-0.7); EOS % 4.1 % (0-4.0); GRAN # 5.4 (1.4-6.5); GRAN % 64.5 % (42.2-75.2); LYMPH # 1.7 (1.2-3.4); LYMPH % 19.8 % (20.0-51.0); MEAN CELL VOLUME 91 fl (80.0-100.0); MEAN CORPUSCULAR HGB CONC 32 g/dl (33.0-37.0); MEAN PLATELET VOLUME 11.7 fl (7.4-10.4); MONO # 0.9 (0.1-0.6); MONO % 10.6 % (1.7-9.3); PLATELET COUNT 255 K/mm3 (130-400); RED BLOOD COUNT 2.92 M/mm3 (4.20-5.60); REDCELL DISTRIBUTION WIDTH-CV 17.4 % (11.5-14.5)
[2020-10-01 06:46] LABS: INR 1.4 (0.8-3.0); PROTHROMBIN TIME 15.7 SECONDS (9.7-12.8)
[2020-10-01 06:49] LABS: PARTIAL THROMBOPLASTIN TIME 30.7 SECONDS (26.0-37.0)
[2020-10-01 06:50] LABS: HEMATOCRIT 26.7 % (42.0-52.0); HEMOGLOBIN 8.6 g/dl (13.5-18.0); MEAN CORPUSCULAR HEMOGLOBIN 29 pg (27.0-31.0)
[2020-10-01 06:52] LABS: ALBUMIN 3.4 gm/dL (3.5-5.0); CALCIUM 8.5 mg/dL (8.4-10.2); CREATININE, serum 4.81 (0.66-1.25); PHOSPHOROUS 7.6 mg/dL (2.5-4.5); POTASSIUM 4.4 mmol/L (3.4-5.0)
--- NOTE | 2020-10-01 08:16 | NUR ---
PT TO SURGERY AT THIS TIME WITH SIENNA CARDENAS.
--- NOTE | 2020-10-01 09:58 | NUR ---
PT RETURNED TO ROOM. VSS, PER BED WITH REPORT FROM STEPHANIE CARDENAS PACU @[facility]. [facility].
--- NOTE | 2020-10-01 15:25 | NUR ---
Patient tolerated 1st HD tx with 600 mL fluid removal, attempted increased fluid removal & patient hypotensive. Next planned tx tomorrow, Saturday10/02/20 @ 0800.
--- NOTE | 2020-10-01 21:30 | NUR ---
Patient resting in bed. No complaints of pain at this time. Dialysis catheter to right chest, dressing clean, dry, and intact. Lechuga catheter to dependent drainage with clear yellow urine. 3+ edema to bilateral lower extremities noted.
[2020-10-02 03:49] VITALS: BP 118/51; PULSE 61; TEMP 98.5
[2020-10-02 06:40] LABS: ALBUMIN 3.3 gm/dL (3.5-5.0); CALCIUM 8.6 mg/dL (8.4-10.2); CREATININE, serum 2.92 (0.66-1.25); PHOSPHOROUS 5.2 mg/dL (2.5-4.5); POTASSIUM 4.2 mmol/L (3.4-5.0)
[2020-10-02 06:57] LABS: BASO # 0.1 (0.0-0.2); BASO % 0.6 % (0.0-2.0); EOS # 0.3 (0.0-0.7); GRAN # 5.7 (1.4-6.5); GRAN % 66.7 % (42.2-75.2); HEMATOCRIT 27.8 % (42.0-52.0); HEMOGLOBIN 8.6 g/dl (13.5-18.0); LYMPH # 1.4 (1.2-3.4); MEAN CELL VOLUME 93 fl (80.0-100.0); MEAN CORPUSCULAR HEMOGLOBIN 29 pg (27.0-31.0); MEAN CORPUSCULAR HGB CONC 31 g/dl (33.0-37.0); MEAN PLATELET VOLUME 11.9 fl (7.4-10.4); MONO % 12.1 % (1.7-9.3); PLATELET COUNT 212 K/mm3 (130-400); RED BLOOD COUNT 2.98 M/mm3 (4.20-5.60); REDCELL DISTRIBUTION WIDTH-CV 17.7 % (11.5-14.5)
[2020-10-02 07:13] VITALS: BP 111/44; PULSE 66; TEMP 98.1
--- NOTE | 2020-10-02 07:32 | NUR ---
REPOSTITIONED PT FOR COMFORT. AM MEDS GIVEN PER ORDERS. PO PAIN MEDS EFFECTIVE PER PT REPORT. PLAN ON DIALYSIS LATER THIS AM. BLE WITH REDNESS AND EDEMA 3+. TELE INPLACE. IV ACCESS TO LUE. WOODARD AWARE.
--- NOTE | 2020-10-02 09:56 | NUR ---
PATIENT TO DIALYSIS THIS AM WITH BRANDON CARDENAS.
[2020-10-02 11:34] VITALS: BP 104/51; PULSE 68; TEMP 98.1
--- NOTE | 2020-10-02 12:07 | NUR ---
Patient tolerated 2nd HD tx with 1L fluid removal. Next planned HD tx on Saturday10/04/20 @ 0800.
[2020-10-02 15:34] VITALS: BP 105/47; PULSE 78; TEMP 97.6
[2020-10-02 20:23] VITALS: BP 111/57; PULSE 64; TEMP 98.5
[2020-10-02 23:30] VITALS: BP 113/46; PULSE 55; TEMP 98.7
[2020-10-03] VITALS (7 sets, daily range): BP systolic 105–134; BP diastolic 39–106; PULSE 60–105; TEMP 97.8–99
--- NOTE | 2020-10-03 06:16 | NUR ---
Patient had no complaints of pain throughout the shift. Lechuga draining clear yellow urine to dependent drainage bag. 850 mls of urine out this shift. 3+ edema and blisters noted on bilateral lower extremities.
[2020-10-03 07:08] LABS: BASO # 0.1 (0.0-0.2); BASO % 0.6 % (0.0-2.0); EOS # 0.5 (0.0-0.7); EOS % 5.7 % (0-4.0); GRAN % 62.1 % (42.2-75.2); LYMPH # 1.6 (1.2-3.4); LYMPH % 20.2 % (20.0-51.0); MEAN CELL VOLUME 94 fl (80.0-100.0); MEAN CORPUSCULAR HGB CONC 31 g/dl (33.0-37.0); MEAN PLATELET VOLUME 12.1 fl (7.4-10.4); MONO # 0.9 (0.1-0.6); PLATELET COUNT 167 K/mm3 (130-400); RED BLOOD COUNT 2.84 M/mm3 (4.20-5.60); REDCELL DISTRIBUTION WIDTH-CV 17.6 % (11.5-14.5)
[2020-10-03 07:29] LABS: HEMATOCRIT 26.8 % (42.0-52.0); HEMOGLOBIN 8.2 g/dl (13.5-18.0); MEAN CORPUSCULAR HEMOGLOBIN 29 pg (27.0-31.0)
[2020-10-03 07:30] LABS: ALBUMIN 3.2 gm/dL (3.5-5.0); CALCIUM 8.8 mg/dL (8.4-10.2); CREATININE, serum 2.42 (0.66-1.25); PHOSPHOROUS 3.6 mg/dL (2.5-4.5)
--- NOTE | 2020-10-03 18:21 | NUR ---
Patient doing well through the day. Family at bedside this afternoon. Edema to BLE. Lechuga maintained to DD with clear yellow urine present. Pain medications given througout the day. Denies needs at this time. Will report off to shift supervisor melting.
[2020-10-04] VITALS (11 sets, daily range): BP systolic 108–172; BP diastolic 53–95; PULSE 18–81; TEMP 98.5–98.9
[2020-10-04 06:05] LABS: BASO % 0.5 % (0.0-2.0); EOS # 0.6 (0.0-0.7); EOS % 6.8 % (0-4.0); GRAN # 5.4 (1.4-6.5); GRAN % 64.7 % (42.2-75.2); LYMPH # 1.6 (1.2-3.4); LYMPH % 18.7 % (20.0-51.0); MEAN CELL VOLUME 94 fl (80.0-100.0); MEAN CORPUSCULAR HGB CONC 30 g/dl (33.0-37.0); MONO # 0.8 (0.1-0.6); MONO % 8.9 % (1.7-9.3); PLATELET COUNT 164 K/mm3 (130-400); RED BLOOD COUNT 2.87 M/mm3 (4.20-5.60); REDCELL DISTRIBUTION WIDTH-CV 17.4 % (11.5-14.5)
[2020-10-04 06:15] LABS: ALBUMIN 3.2 gm/dL (3.5-5.0); CALCIUM 8.9 mg/dL (8.4-10.2); CREATININE, serum 1.95 (0.66-1.25); POTASSIUM 3.9 mmol/L (3.4-5.0)
[2020-10-04 06:17] LABS: HEMATOCRIT 27.1 % (42.0-52.0); HEMOGLOBIN 8.2 g/dl (13.5-18.0); INR 1.4 (0.8-3.0); MEAN CORPUSCULAR HEMOGLOBIN 29 pg (27.0-31.0); PROTHROMBIN TIME 15.4 SECONDS (9.7-12.8)
--- NOTE | 2020-10-04 06:30 | NUR ---
Patient had no complaints of pain throughout the shift. He has been NPO since midnight for surgery. Plan is for dialysis this morning and then surgery at 1330. Will report off to day shift.
--- NOTE | 2020-10-04 08:30 | NUR ---
Patient ambulated to dialysis.
--- NOTE | 2020-10-04 15:20 | NUR ---
Patient up from OR, alert and oriented x 3. Post op VSS. Fistula site to NEVIN with edges well approximated. Patient states soreness to Right arm. Denies further needs at this time.
--- NOTE | 2020-10-04 15:27 | NUR ---
Welt Butter Hand collaborated with patient's niece, Monalisa about discharge plan. Monalisa advised that she plans to transport patient to dialysis upon discharge. YUDITH also contacted Praveena at [facility] to provide update. YUDITH will continue to follow.
--- NOTE | 2020-10-04 15:31 | NUR ---
Patient tolerated HD tx with 280 mL fluid removal today.
[2020-10-04] MEDS ORDERED: COUMADIN 1MG1 MG/TAB PO (16:03)
--- NOTE | 2020-10-04 16:26 | NUR ---
Lechuga discontinued per orders.
--- NOTE | 2020-10-04 16:56 | NUR ---
The patient's nurse contacted this Combatant Swimmer regarding patient discharge. The patient to discharge home today, 10/04 with [facility]. PT/OT/Residential services. YUDITH faxed discharge orders and discharge summary to Praveena with [facility] then contacted her regarding discharge, left message. There are no additional needs. *Discharge disposition: Home with [facility]. PT/OT/Residential
--- NOTE | 2020-10-04 19:14 | NUR ---
Patient doing well post op. Denies pain at this time. Voided 100 ml of urine without difficulties after mathias removal. Patient calling for ride for discharge. Patient denies needs at this time. Will report off to shift supervisor film processing.
[2020-10-18] MEDS ORDERED: LASIX 40MG TABL40 MG PO (11:44)
== END 2020-10-04 20:00 | disposition home or self-care (01) | DRG 674 ==
LOC: COL.ER 17:44 → SURG 20:35
PROVIDERS: Family Medicine; Surgery; ADMIT Internal Medicine Nephrology
PROC: 0JH63XZ Insertion of Tunneled Vascular Access Device into Chest Subcutaneous Tissue and Fascia, Percutaneous Approach (ICD-10-PCS; 2020-10-01)
PROC: 05HM33Z Insertion of Infusion Device into Right Internal Jugular Vein, Percutaneous Approach (ICD-10-PCS; 2020-10-01)
PROC: 5A1D70Z Performance of Urinary Filtration, Intermittent, Less than 6 Hours Per Day (ICD-10-PCS; 2020-10-04)
PROC: 03180ZF Bypass Left Brachial Artery to Lower Arm Vein, Open Approach (ICD-10-PCS; principal; 2020-10-04 13:30)
DX: N17.9 Acute kidney failure, unspecified (principal); Q60.0 Renal agenesis, unilateral; I48.20 Chronic atrial fibrillation, unspecified; N12 Tubulo-interstitial nephritis, not specified as acute or chronic; E11.22 Type 2 diabetes mellitus with diabetic chronic kidney disease; E11.21 Type 2 diabetes mellitus with diabetic nephropathy; N18.6 End stage renal disease; E87.5 Hyperkalemia; E83.39 Other disorders of phosphorus metabolism; I89.0 Lymphedema, not elsewhere classified; N40.0 Benign prostatic hyperplasia without lower urinary tract symptoms; M19.90 Unspecified osteoarthritis, unspecified site; E78.5 Hyperlipidemia, unspecified; G89.29 Other chronic pain; F41.9 Anxiety disorder, unspecified; G47.00 Insomnia, unspecified
CPT/HCPCS: OP; C1768; G0378; J0690; J1644; J2250; J2704; J2997; J3010; J7030; Q5105

== ENCOUNTER 2020-10-21 11:46 | Day surgery (SDC) | payer MEDICARE, OTHER ==
[~2020-10-21] VITALS: Ht 175.3 cm; Wt 109.2 kg
[~2020-10-21 11:46] MED LIST changes: +COUMADIN 1MG1 MG/TAB PO; +GLUCOTROL 5M5 MG/TAB PO
[2020-10-21 14:05] VITALS: BP 129/55; PULSE 55; TEMP 97.7
[2020-10-21 14:19] LABS: BASO # 0.1 (0.0-0.2); BASO % 0.5 % (0.0-2.0); EOS # 0.4 (0.0-0.7); EOS % 2.7 % (0-4.0); GRAN # 11.3 (1.4-6.5); GRAN % 77.4 % (42.2-75.2); LYMPH # 1.6 (1.2-3.4); LYMPH % 10.7 % (20.0-51.0); MEAN CELL VOLUME 96 fl (80.0-100.0); MEAN CORPUSCULAR HGB CONC 31 g/dl (33.0-37.0); MEAN PLATELET VOLUME 10.3 fl (7.4-10.4); MONO # 1.1 (0.1-0.6); MONO % 7.6 % (1.7-9.3); PLATELET COUNT 159 K/mm3 (130-400); RED BLOOD COUNT 3.09 M/mm3 (4.20-5.60); REDCELL DISTRIBUTION WIDTH-CV 20.1 % (11.5-14.5)
[2020-10-21 14:23] LABS: CALCIUM 9.2 mg/dL (8.4-10.2); CREATININE, serum 2.84 (0.66-1.25); POTASSIUM 4.7 mmol/L (3.4-5.0)
[2020-10-21 14:36] LABS: HEMATOCRIT 29.7 % (42.0-52.0); HEMOGLOBIN 9.2 g/dl (13.5-18.0); INR 1.3 (0.8-3.0); MEAN CORPUSCULAR HEMOGLOBIN 30 pg (27.0-31.0); PROTHROMBIN TIME 14.1 SECONDS (9.7-12.8)
[2020-10-21 16:27] VITALS: BP 109/59; PULSE 52
--- NOTE | 2020-10-21 16:27 | NUR ---
Patient returns to room 8 per cart from surgery accompanied by Crista CARDENAS and Jax ERAZO. Patient is awake and alert. IV fluids infusing and site is free of redness or swelling. Temp 97.8 and room air sats 100%. Family in room. Right sided dialysis catheter noted and covered with dressing. Denies pain or nausea. Sipping on Sonic drink that was brought to patient by family.
[2020-10-21 16:42] VITALS: BP 114/50; PULSE 54
--- NOTE | 2020-10-21 16:42 | NUR ---
Patient resting and drinking fluids.
[2020-10-21 16:57] VITALS: BP 132/65; PULSE 57
--- NOTE | 2020-10-21 16:57 | NUR ---
Eating crackers and denies pain or nausea.
--- NOTE | 2020-10-21 17:00 | NUR ---
IV discontinued and site is free of redness. Assisted with dressing. Given dismissal instructions and voices understanding. Assisted into wheelchair by family.
--- NOTE | 2020-10-21 17:06 | NUR ---
Patient dismissed to home driven by family and taken to the front door and assisted into vehicle with instructions in hand.
== END 2020-10-21 17:06 | disposition home or self-care (01) ==
LOC: SDCO 11:46
PROVIDERS: Surgery
DX: T85.611A Breakdown (mechanical) of intraperitoneal dialysis catheter, initial encounter (principal); N18.6 End stage renal disease; U07.1 COVID-19; E78.5 Hyperlipidemia, unspecified; I10 Essential (primary) hypertension; I48.91 Unspecified atrial fibrillation; I25.10 Atherosclerotic heart disease of native coronary artery without angina pectoris; K21.9 Gastro-esophageal reflux disease without esophagitis; M19.90 Unspecified osteoarthritis, unspecified site; E11.9 Type 2 diabetes mellitus without complications; D64.9 Anemia, unspecified; G47.00 Insomnia, unspecified; M10.9 Gout, unspecified; G89.29 Other chronic pain; M54.9 Dorsalgia, unspecified; Z99.2 Dependence on renal dialysis; Z79.899 Other long term (current) drug therapy; Z79.891 Long term (current) use of opiate analgesic; Z79.01 Long term (current) use of anticoagulants; Z95.1 Presence of aortocoronary bypass graft
CPT/HCPCS: J1644; J7120

== ENCOUNTER 2020-10-24 14:30 | Observation (INO) | payer MEDICARE, OTHER ==
[~2020-10-24] VITALS: Ht 175.3 cm; Wt 103.4 kg
[2020-10-24 16:01] VITALS: BP 132/51; PULSE 56; TEMP 98.4
[2020-10-24] MEDS ORDERED: LASIX 40MG TABL40 MG PO (17:13)
--- NOTE | 2020-10-24 17:26 | NUR ---
PT ADMISSION COMPLETED, SUGAR 62, PT DRANK 224 ML OF APPLE JUICE, ANOTHER 224ML BROUGHT IN FOR PT TO DRINK, WILL REASSESS BS. PT REPORTS PAIN IN BLE, RLE HAS SEVERE LYMPHEDEMA CHRONIC FOR PT. ASSESSMENT PERFORMED, ICE WATER BROUGHT IN, WILL CALL VIKRAM FOR ORDERS, NO OTHER NEEDS.
[2020-10-24 18:17] LABS: ALBUMIN 3.4 gm/dL (3.5-5.0); CALCIUM 8.5 mg/dL (8.4-10.2); CREATININE, serum 2.19 (0.66-1.25); POTASSIUM 5.3 mmol/L (3.4-5.0)
--- NOTE | 2020-10-24 18:29 | NUR ---
SUGAR INC TO 72, DINNER ORDERED,
[2020-10-24 18:36] LABS: PHOSPHOROUS 3.2 mg/dL (2.5-4.5)
[2020-10-24 19:32] VITALS: BP 129/47; PULSE 59; TEMP 97.8
[2020-10-24 23:52] VITALS: BP 135/49; PULSE 52; TEMP 97.9
[2020-10-25 03:56] VITALS: BP 140/53; PULSE 59; TEMP 98.4
--- NOTE | 2020-10-25 05:44 | NUR ---
PT HAD UNEVENTFUL NIGHT, BS STABLE, HEART RATE IN THE UPPER 50'S. PT DENIES PAIN/N/V/D/CHILLS/SOA. PT REMAINS AFEBRILE. PT EXPRESSES NO ADDITIONAL NEEDS AT THIS TIME. CALL LIGHT WITHIN REACH.
--- NOTE | 2020-10-25 08:04 | NUR ---
molder labels receiving order for TDC. This RN in contact with Dr Sr regarding procedure. Dr Sr referring case to surgery. This RN contacting ERIK Thurston who placed order to inform of this. Karena to follow up with Dr Herr and Dr Sr.
[2020-10-25 08:23] VITALS: BP 138/52; PULSE 58; TEMP 98.5
--- NOTE | 2020-10-25 09:00 | NUR ---
Shift assessment preformed. Medications held, dialysis scheduled for morning. VSS. Patient taken down for a dialysis catheter replacement. New cath placed on left chest. Report recieved from RONALD Santamaria. Dialysis started.
--- NOTE | 2020-10-25 09:49 | NUR ---
hospitality workers spoke with the Director of clinical nursing for [facility] and she advised that they feel patient is not able to manage his care at home and they will not admit him for any further services. Worker contacted Margie, Adult Protective Services, and advised of [place]'s information and shared that the patient has been readmitted 4 times since September 2020. Margie will visit with patient today and contact DPOA for health care today. Hospital social workers will be working with patient and his DPOA for health care to secure a higher level of care upon discharge.
[2020-10-25 11:16] LABS: INR 1.2 (0.8-3.0); PROTHROMBIN TIME 13.7 SECONDS (9.7-12.8)
[2020-10-25 11:46] LABS: BASO # 0.1 (0.0-0.2); BASO % 0.6 % (0.0-2.0); EOS # 0.6 (0.0-0.7); GRAN # 8.5 (1.4-6.5); GRAN % 73.6 % (42.2-75.2); LYMPH # 1.4 (1.2-3.4); LYMPH % 12.4 % (20.0-51.0); MEAN CELL VOLUME 96 fl (80.0-100.0); MEAN CORPUSCULAR HGB CONC 31 g/dl (33.0-37.0); MEAN PLATELET VOLUME 10.8 fl (7.4-10.4); MONO # 0.9 (0.1-0.6); MONO % 7.5 % (1.7-9.3); PLATELET COUNT 214 K/mm3 (130-400); RED BLOOD COUNT 2.89 M/mm3 (4.20-5.60); REDCELL DISTRIBUTION WIDTH-CV 19.9 % (11.5-14.5)
[2020-10-25 11:47] LABS: HEMATOCRIT 27.8 % (42.0-52.0); HEMOGLOBIN 8.5 g/dl (13.5-18.0); MEAN CORPUSCULAR HEMOGLOBIN 29 pg (27.0-31.0)
[2020-10-25 12:39] LABS: ALBUMIN 3.2 gm/dL (3.5-5.0); CALCIUM 8.5 mg/dL (8.4-10.2); CREATININE, serum 1.94 (0.66-1.25); PHOSPHOROUS 3.4 mg/dL (2.5-4.5); POTASSIUM 5.4 mmol/L (3.4-5.0)
--- NOTE | 2020-10-25 15:21 | NUR ---
PATIENT TOLERATED HD TX WITH 3L FLUID REMOVAL & STABLE BFR 450 DURING ENTIRE TX WITH NEW LEFT IJ TUNNELED DIALYSIS CATHETER.
--- NOTE | 2020-10-25 15:30 | NUR ---
Dialysis ended. 3 L taken off. Patient tolerated procedure well. PRN percocet given for pain located in jugular IV site. Rated 6/10 aching pain. Will continue to monitor. Call light in reach.
[2020-10-25 16:53] VITALS: BP 121/58; PULSE 58; TEMP 98.7
--- NOTE | 2020-10-25 17:00 | NUR ---
Patient seen by Dr. Herr. Deemed fit for discharge. Recieved verbal orders to give patient 2 mg of Warfarin PO before discharge. Order repeated back and entered into computer. Paperwork started. Will continue to monitor. Call light in reach.
[2020-10-25] MEDS ORDERED: COUMADIN 2MG2 MG/TAB PO (17:34)
--- NOTE | 2020-10-25 19:00 | NUR ---
Discharge instructions/education given. IV DC's, catheter intact, no signs of phlebitis. Patient denies any futher questions or concerns at this time. VSS. Patient escorted from the building by [facility] Staff via wheelchair.
--- NOTE | 2020-10-27 14:14 | NUR ---
(late entry 10/25) The patient discharged home on 10/25 with [facility]. PT/snf services. On 10/25 [employer] contacted the patient's niece Patricia to discuss the discharge plan. Patricia reports she has quit her job in order to be the patient's full-time caregiver. The patient to start in-home dialysis in 5 weeks. Patricia will receive training to support the patient. YUDITH discussed the patient's readmissions, Jessica's refusal to readmit to care, and needing a higher level of care. YUDITH also discussed that Jessica reports that the patient is "not appropriate for home." Patricia understood and she feels that a couple of the the patient's readmissions were due to dialysis catheter problems. Patricia was agreeable to home health and reviewed the list of hh agencies. She chose [facility]. Referrals faxed. YUDITH contacted Lin with [facility] and discussed the above information. She staffed with Lonnie with [facility] and they were agreeable to taking the patient for services. YUDITH left message with Dr. Herr to discuss the above information. *Discharge disposition: Home with niece support and [facility]. PT/Retirement services*
== END 2020-10-25 19:00 | disposition home health service (06) ==
LOC: MEDICAL 14:30
PROVIDERS: Nurse Practitioner; ADMIT Internal Medicine Nephrology
DX: T82.41XA Breakdown (mechanical) of vascular dialysis catheter, initial encounter (principal); E11.22 Type 2 diabetes mellitus with diabetic chronic kidney disease; I12.0 Hypertensive chronic kidney disease with stage 5 chronic kidney disease or end stage renal disease; N18.6 End stage renal disease; I49.5 Sick sinus syndrome; D63.1 Anemia in chronic kidney disease; I89.0 Lymphedema, not elsewhere classified; E87.5 Hyperkalemia; Z86.16 Personal history of COVID-19; M10.9 Gout, unspecified; K21.9 Gastro-esophageal reflux disease without esophagitis; Q60.0 Renal agenesis, unilateral; Z99.2 Dependence on renal dialysis; Z79.899 Other long term (current) drug therapy; Z79.01 Long term (current) use of anticoagulants; Z88.8 Allergy status to other drugs, medicaments and biological substances; Z95.818 Presence of other cardiac implants and grafts
CPT/HCPCS: C1750; G0378; J0690; J1644; J2704; J3010; J7030; Q5105